=== PATIENT | male | born 1985 | race Two or more races ===

== ENCOUNTER 2019-02-24 07:07 | Emergency (ER) | payer OTHER ==
[~2019-02-24] VITALS: Ht 160 cm; Wt 73.5 kg
--- NOTE | 2019-02-24 07:15 | NUR ---
[employer] AND [employer], FOUND IN FRONT OF THE [employer] STATION NAKED, LAC ON THE R BICEPS ABRASIONS AND ON LEGS BILATERALLY. AAOX3. BREATHING UNLABORED AND EVEN. NO SOB. PATIENT CONNECTED TO MONITOR.
--- NOTE | 2019-02-24 07:17 | NUR ---
URINE COLLECTED AND SENT TO LAB
[2019-02-24] MEDS ORDERED: LIDOCAINE 1%-EPI 1:100,000 20 ML VIAL ONE (07:26)
[2019-02-24] MEDS ORDERED: TDAP [DIPH/PERTUSSIS/TET] 0.5 ML VIAL IM ONE ×2 (07:30→07:38)
[2019-02-24] MEDS ORDERED: OLANZAPINE 10 MG VIAL IM ONE ×2 (07:30→07:38)
[2019-02-24] MEDS ORDERED: LIDOCAINE 1%-EPI 1:100,000 20 ML VIAL TP ONE (07:30)
[2019-02-24 07:35] LABS: APPEARANCE,URINE Slightly Cloudy (CLEAR); BILIRUBIN,URINE MODERATE (NEGATIVE); BLOOD, URINE Moderate Ery/uL (NEGATIVE); COLOR,URINE Dark (YELLOW); KETONES,URINE Negative (NEGATIVE); LEUKOCYTE ESTERASE ,URINE Negative (NEGATIVE); NITRITE, URINE Negative (NEGATIVE); PH,URINE 5.5 (5.0-8.0); PROTEIN,URINE 30 mg/dl (NEGATIVE); UGLUCOSE Negative (NEGATIVE)
[2019-02-24 07:54] LABS: SQUAMOUS EPITHELIAL CELL,UR Few /HPF (None Seen); WBC,URINE 0-2 /HPF (0-3)
[2019-02-24 07:56] LABS: BASOPHILS # (AUTO) 0.2 /CMM (0.0-0.2); BASOPHILS % (AUTO) 1.6 % (0.0-2.0); HEMATOCRIT 38 % (39-51); HEMOGLOBIN 13.5 g/dL (13.5-17.5); LYMPHOCYTES # (AUTO) 0.4 /CMM (0.8-4.8); MEAN CORPUSCULAR HGB CONC 36 g/dl (31.0-36.0); MEAN CORPUSCULAR VOLUME 93 fL (80-96); MONOCYTES # (AUTO) 0.6 /CMM (0.1-1.30); MONOCYTES % (AUTO) 5.5 % (2.0-12.0); NEUTROPHILS # (AUTO) 9.5 /CMM (1.8-8.9); NEUTROPHILS % (AUTO) 86.9 % (43.0-81.0); PLATELET COUNT (AUTO) 225 /CMM (150-450); RED BLOOD CELL COUNT(AUTO) 4.11 MIL/uL (4.5-6.0); WHITE BLOOD COUNT (AUTO) 10.9 K/uL (4.3-11.0)
[2019-02-24 08:10] LABS: ALANINE AMINOTRANSFERASE 74 U/L (12-78); ALBUMIN 3.5 g/dL (3.4-5.0); ALCOHOL, BLOOD < 3 mg/dL (0-0); ALKALINE PHOSPHATASE 71 U/L (46-116); ASPARTATE AMINOTRANSFERASE 119 U/L (15-37); BILIRUBIN,DIRECT 0.3 mg/dL (0.0-0.2); BILIRUBIN,TOTAL 1.1 mg/dL (0.2-1.0); CALCIUM, SERUM 8.9 mg/dL (8.5-10.1); CARBON DIOXIDE 25 mmol/L (21-32); CHLORIDE 101 mmol/L (98-107); CREATININE 1.4 mg/dL (0.6-1.3); GLUCOSE 94 mg/dL (74-106); SODIUM SERUM 137 mmol/L (136-145); TOTAL PROTEIN, SERUM 6.9 g/dL (6.4-8.2); UREA NITROGEN, BLOOD 13 mg/dL (7-18)
[2019-02-24 08:12] LABS: POTASSIUM 2.7 mmol/L (3.5-5.1); SALICYLATE 0.6 mg/dL (2.8-20.0)
[2019-02-24 08:13] LABS: ACETAMINOPHEN 0 ug/ml (10-30)
[2019-02-24 08:15] LABS: BACTERIA,URINE None seen /HPF (None Seen)
[2019-02-24] MEDS ORDERED: POTASSIUM CL. PREMIX PERIPHER. 50 ML ONE (11:46)
[2019-02-24] MEDS ORDERED: IV NS 0.9% 1,000 ML BAG IV ONE (12:00)
[2019-02-24] MEDS ORDERED: POTASSIUM CL. PREMIX PERIPHER. 50 ML IV SCH (12:00)
[2019-02-24] MEDS ORDERED: POTASSIUM CL. PREMIX PERIPHER. 50 ML IV PRN (14:00)
--- NOTE | 2019-02-25 03:30 | NUR ---
IV LINE REMOVED. NO BLEEDING NOTED. GAUZE APPLIED.
[2019-02-25 05:49] VITALS: BP 121/71
== END 2019-02-25 05:50 | disposition home or self-care (01) ==
LOC: ER 07:11 → EDBD 07:11 → ER 02-25 05:50
DX: S46.221A Laceration of muscle, fascia and tendon of other parts of biceps, right arm, initial encounter (principal); R45.1 Restlessness and agitation; F12.10 Cannabis abuse, uncomplicated; F19.10 Other psychoactive substance abuse, uncomplicated; X58.XXXA Exposure to other specified factors, initial encounter; Y93.89 Activity, other specified; Y92.89 Other specified places as the place of occurrence of the external cause; Y99.8 Other external cause status
CPT/HCPCS: 12002; 36415; 80048; 80076; 80305; 80307; 80329; 81001; 85025; 90471; 90715; 96372; 99283; A6403; G0480; J3480; J3490 ×2; J7030; 81000-TC